=== PATIENT | male | born 1995 | race Hispanic/Latino ===

== ENCOUNTER 2017-08-05 09:31 | Emergency (ER) | payer BC ==
[2017-08-05 09:46] VITALS: BP 138/87; PULSE 79; RESP 20; TEMP 97.8; O2SAT 98
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
[2017-08-05] MEDS ORDERED: Oxycodone/Acetaminophen 5/325 mg Tab PO STA (10:40)
[2017-08-05] MEDS ORDERED: Oxycodone/Acetaminophen 5/325 mg Tab ONE (11:17)
== END 2017-08-05 11:37 | disposition home or self-care (01) ==
LOC: H.ER 09:31
DX: T20.26XA Burn of second degree of forehead and cheek, initial encounter (principal); T79.9XXA Unspecified early complication of trauma, initial encounter; X10.2XXA Contact with fats and cooking oils, initial encounter; J45.909 Unspecified asthma, uncomplicated